=== PATIENT | male | born 1955 | race Hispanic/Latino ===

== ENCOUNTER 2019-01-02 19:44 | Inpatient (IN) | payer MEDICARE, OTHER ==
[~2019-01-02 19:44] MED LIST: Iopamidol 370 76% 100 ML VIAL ONE
[2019-01-02] MEDS ORDERED: Aspirin Chewable 81 MG TAB ONE (19:57)
[2019-01-02] MEDS ORDERED: Nitroglycerin 0.4 MG TAB 1 EACH ONE (19:57)
[2019-01-02 20:05] LABS: #Eosinphils 0.3 thou/uL (0.0-0.7); #Lymphocytes 2.8 thou/uL (1.20-3.40); #Monocytes 0.8 thou/uL (0.11-0.59); #Neutrophils 6.3 thou/uL (1.40-6.50); %Basophils 0.3 % (0.0-1.0); %Eosinophils 3.2 % (0.0-10.0); %Lymphocytes 27.3 % (21.0-51.0); %Neutrophils 61.3 % (42.0-75.0); Hemoglobin 12.4 g/dL (14.0-18.0); Mean Corpuscular HGB CONC 34.2 g/dL (32.0-36.0); Mean Corpuscular Hemoglobin 30.4 pg (27.0-31.0); Mean Corpuscular Volume 88.9 fL (78.0-98.0); Mean Platelet Volume 8.2 fL (7.4-10.4); Platelet Count 302 thou/uL (130-400); RBC Distribution Width 12.1 % (11.5-14.5); Red Blood Cell (RBC) Count 4.08 mill/uL (4.70-6.10); White Blood Cell (WBC) Count 10.2 thou/uL (4.8-10.8)
[2019-01-02] MEDS ORDERED: Morphine 4 MG/ML VIAL ONE (20:13)
[2019-01-02] MEDS ORDERED: Nitroglycerin 2% Ointment 1 INCH/1 GM Packet ONE (20:13)
[2019-01-02 20:27] LABS: ALT (SGPT) 32 U/L (8-55); AST (SGOT) 24 U/L (5-34); Albumin 4.3 g/dL (3.4-4.8); Alkaline Phosphatase 96 U/L (40-150); Anion Gap 15 mmol/L (10-20); BUN (Urea Nitrogen) 18 mg/dL (8.4-25.7); Bilirubin, Total 0.3 mg/dL (0.2-1.2); Calc. Creatinine Clearance 0 mL/min (70-130); Calcium 9.1 mg/dL (7.8-10.44); Carbon Dioxide 23 mmol/L (23-31); Chloride 106 mmol/L (98-107); Estimated GFR-MDRD 71; Glucose 131 mg/dL (80-115); Lipase 42 U/L (8-78); Magnesium 1.7 mg/dL (1.6-2.6); Potassium 4.2 mmol/L (3.5-5.1); Protein, Total 7.3 g/dL (5.8-8.1); Sodium 140 mmol/L (136-145)
--- NOTE | 2019-01-02 20:27 | RAD ---
CHEST ONE VIEW: COMPARISON: 09/28/2014 FINDINGS: Normal cardiac silhouette. Pulmonary vessels and hilum are normal. Costophrenic angles are clear. Patchy interstitial opacities may be due to edema or infiltrate. There is a stable nodule projecting over the right lung base, measuring 1.2 cm. No pneumothorax or osseous abnormalities. IMPRESSION: 1. Increased interstitial prominence, which may be due to edema or infiltrate. 2. Stable nodule in the right lung. POS: PPP
[2019-01-02 21:23] LABS: Bacteria/HPF None Seen HPF (None Seen); Bilirubin Negative (Negative); Blood, Urine 1+ (Negative); Clarity Clear (Clear); Glucose, Urine (Dipstick) Normal (Negative); Leukocyte Negative Leu/uL (Negative); Nitrite Negative (Negative); Protein, Urine (Dipstick) 50 mg/dL (Neg-Trace); Squamous Epithelial None Seen HPF (0-3); WBC/HPF 0-3 HPF (0-3)
--- NOTE | 2019-01-02 21:25 | CT ---
CT ANGIOGRAM THORAX WITH IV CONTRAST AND 3-D RECONSTRUCTIONS CLINICAL INDICATION: Chest pain and shortness of breath for one week. COMPARISON: None FINDINGS: Pulmonary arteries: No filling defects are seen in the pulmonary arteries to suggest a pulmonary embo giuseppe. Aorta: The aorta is normal in caliber without evidence of an aortic dissection. Lungs: There are multiple scattered nodular densities seen at the periphery of the lungs bilaterally greater in the lower lobes and right middle lobe. Additional hazy nodular densities are also seen centrally within the lower lobes. Findings could be related to infectious process, and atypical infec tious process is a possibility. There is mild prominence of interstitial densities at each lung base. No consolidation or pleural fluid is seen. There is a large calcified granuloma in the right upper lobe. Mediastinum: There is no evidence of lymphadenopathy. Thyroid gland: Normal appearance where visualized. Osseous structures: Multilevel degenerative changes are seen. No suspicious lytic or sclerotic osseou s lesions are seen. There is a hemangioma seen in the left aspect of the T12 vertebral body. Chest wall: No abnormality visualized. Upper abdomen: Postcholecystectomy changes are seen. There are a few subcentimeter too small to characterize hypodense lesions in the midportion and super ior pole left kidney. There is colonic diverticulosis at the level of the splenic flexure. IMPRESSION: 1. Multiple predominantly subpleural nodular densities seen throughout the lungs bilaterally greater in the lower lobes. Findings could be related to an infectious process as some of these nodules have a slight groundglass density but well-defined margins. However, follow-up is recommended to ensu re resolution. Atypical infectious process is a possibility. 2. Nonspecific mild interstitial thickening in each lower lobe. 3. No CT evidence of a pulmonary embolus.
[2019-01-02] MEDS ORDERED: Ondansetron ODT 4 MG TAB PO PRN (22:01)
[2019-01-02] MEDS ORDERED: Ondansetron PF 4 MG/2 ML Vial IVP PRN (22:01)
[2019-01-02] MEDS ORDERED: Acetaminophen 650 MG Suppository PR PRN (22:01)
[2019-01-02] MEDS ORDERED: Dextrose 5% in Water 1,000 ML IV PRN (22:40)
[2019-01-02] MEDS ORDERED: Dextrose 50% Abboject 50 ML SYRINGE SLOW IVP PRN (22:40)
[2019-01-02] MEDS: Nitroglycerin 0.4 MG TAB (25 Tab Bottle) ONE ×2 (22:54→23:02)
[2019-01-02] MEDS: Acetaminophen 325 MG TAB PO PRN (22:57)
[2019-01-02 23:16] LABS: Troponin I 0.012 ng/mL (< 0.028)
[2019-01-02 23:23] VITALS: BMI 33.6
--- NOTE | 2019-01-03 00:07 | HP ---
PRIMARY CARE DOCTOR: The [facility]. CODE STATUS: Full code. TIME OF EVALUATION: 10:00 p.m. HISTORY OF PRESENT ILLNESS: This is a 63-year-old male patient with past medical history of hypertension, hyperlipidemia, diabetes. The patient came to the hospital after having moderate gradually worsening shortness of breath. The symptoms have been present for the past week, started insidiously and has been gradually getting worse to the point that he cannot function on a daily basis to do his activities of daily living. The patient also has paroxysmal nocturnal dyspnea and that has become so frequent that is happening every night. No clear triggers. No alleviating factors for these symptoms. No fever. He does have some cough with clear sputum. REVIEW OF SYSTEMS: All systems were reviewed and negative except for the findings mentioned above. An extra finding in the review of system was that he reports some abdominal pain and abdominal distention. No constipation, no diarrhea. PAST MEDICAL HISTORY: As mentioned in the HPI. PAST SURGICAL HISTORY: Kidney stone removal, right knee surgery, left collarbone surgery, and cholecystectomy. PSYCHIATRIC HISTORY: The patient has anxiety and depression. SOCIAL HISTORY: No drug use. He smokes cigarettes occasionally. Drinks socially. FAMILY HISTORY: The patient has a history of cardiac disease in both mom and father's side. KNOWN ALLERGIES: No known drug allergies. REPORTED MEDICATIONS: 1. Fluoxetine. 2. Aspirin. 3. Doxazosin. 4. Metformin. 5. Simvastatin. 6. Atenolol. 7. Glipizide. 8. Lactobacillus acidophilus. 9. Cyanocobalamin. 10. NovoLog FlexPen. PHYSICAL EXAMINATION: VITAL SIGNS: On presentation, the patient has blood pressure 201/102 with heart rate 105, respiratory rate was 20, temperature 99, pain was 9/10, oxygen saturation was 97% on room air. GENERAL APPEARANCE: The patient is alert, oriented, not in acute distress. HEENT: Eyes; normal conjunctivae. Moist oral mucosa. Anicteric. No JVD. RESPIRATORY: Bilateral air entry. The patient has bilateral base rales. Symmetric expansion. CARDIOVASCULAR: Normal rate, regular rhythm. No murmurs. No gallop. No edema. ABDOMEN: Soft, distended. Normal bowel sounds. MUSCULOSKELETAL: Baseline range of motion and strength. SKIN: Warm, intact. No pallor. No rash. No redness. Capillary refill seems to be intact. NEUROLOGIC: No evidence of any new focal weakness. Cranial nerves seem to be intact. PSYCH: The patient is in good mood. No anxiety. Optimal judgment. DIAGNOSTIC FINDINGS: EKG was reviewed. The patient has sinus tachycardia at the rate of 104, SC 130, QRS 96, QT corrected 478. Chest CTA was done. The patient has multiple predominantly superior nodular densities seen throughout the lungs bilaterally greater in the lower lobes; finding could be related to infectious process as some of these nodules have a slight ground-glass density but well-defined margins. However, followup is recommended to ensure resolution. Atypical infectious process is a possibility. Nonspecific mild interstitial thickening in his lower lobe. No CTA evidence of pulmonary embolism. Chest x-ray was done. Increased interstitial prominence which may be due to edema or infiltrate. Stable nodule in the right lung. LABORATORY DATA: Labs were reviewed. The patient has a white count of 10.2, hemoglobin 12.4, MCV 88.9, platelet count 302. D-dimer 1.34. Sodium 140, potassium 4.2, chloride 106, carbon dioxide 23, anion gap 15, BUN 18, creatinine 1.0, GFR 71, glucose 131, calcium 9.1, magnesium 1.7, total bilirubin 0.3. LFTs were negative. Beta-natriuretic peptide 390. Urine was done and was negative. ASSESSMENT AND PLAN: The patient will be placed in the hospital with following medical problems: 1. Atypical pneumonitis as seen on the CAT scan. The patient has been complaining that may be infectious in nature. We are going to start antibiotics as of now, and then we will follow the clinical progress. The nodularity, it seems, has some ground glass opacity on the CAT scan that might be related to infection. However, if the symptoms do not improve with antibiotics, malignancy should be another consideration. 2. Possible underlying nondiagnosed congestive heart failure. The patient has beta-natriuretic peptide of 390. We will do an echo in the morning to assess for heart structure and function, and we will treat accordingly. 3. Mild normocytic anemia of unclear etiology. This seems to be stable. We will monitor and treat accordingly. 4. High D-dimer. There is no evidence of any venous thromboembolism. CT angio was negative for pulmonary embolism. 5. Uncontrolled diabetes with blood sugar of 131. We will reconcile home medications and we will also place him on sliding scale for optimal control. 6. Hypertensive urgency. The patient presented with blood pressure of 201/102 and this blood pressure has improved after the patient arrival. We will reconcile home medications once updated and monitor. Might need IV p.r.n. medications for optimal control. 7. Hyperlipidemia. Low-cholesterol diet is advised. 8. Deep venous thrombosis prophylaxis. Job ID: [id number]
[2019-01-03] MEDS: Azithromycin 500 MG in Sodium Chloride 0.9% 250 ML 250 ML IVPB SCH ×2 (00:47→23:39)
[2019-01-03] MEDS: cefTRIAXone\\ROCEPHIN 1 GM in Sodium Chloride 0.9% 100 ML IVPB SCH ×2 (00:48→23:39)
[2019-01-03 01:44] LABS: #Basophils 0.1 thou/uL (0.0-0.2); #Eosinphils 0.3 thou/uL (0.0-0.7); #Lymphocytes 2.8 thou/uL (1.20-3.40); #Monocytes 0.9 thou/uL (0.11-0.59); #Neutrophils 5.8 thou/uL (1.40-6.50); %Basophils 0.6 % (0.0-1.0); %Eosinophils 3.5 % (0.0-10.0); %Monocytes 9.2 % (0.0-10.0); %Neutrophils 58.7 % (42.0-75.0); Hemoglobin 10.6 g/dL (14.0-18.0); Mean Corpuscular HGB CONC 33.7 g/dL (32.0-36.0); Mean Corpuscular Hemoglobin 30.4 pg (27.0-31.0); Mean Corpuscular Volume 90.1 fL (78.0-98.0); Platelet Count 264 thou/uL (130-400); RBC Distribution Width 12.4 % (11.5-14.5); Red Blood Cell (RBC) Count 3.47 mill/uL (4.70-6.10); White Blood Cell (WBC) Count 9.8 thou/uL (4.8-10.8)
[2019-01-03 02:12] LABS: Anion Gap 12 mmol/L (10-20); BUN (Urea Nitrogen) 16 mg/dL (8.4-25.7); Calc. Creatinine Clearance 111 mL/min (70-130); Calcium 8.6 mg/dL (7.8-10.44); Carbon Dioxide 21 mmol/L (23-31); Chloride 110 mmol/L (98-107); Estimated GFR-MDRD 89; Glucose 131 mg/dL (80-115); Potassium 3.8 mmol/L (3.5-5.1); Sodium 139 mmol/L (136-145)
[2019-01-03 02:18] LABS: Troponin I Less than 0.010 ng/mL (< 0.028)
[2019-01-03] MEDS ORDERED: Furosemide 40 MG/4 ML VIAL SLOW IVP SCH (06:00)
[2019-01-03] MEDS: Enoxaparin Sodium 40 MG/0.4 ML SYRINGE SC SCH (09:14)
[2019-01-03] MEDS: HumaLOG 300 UNITS/3 ML VIAL SC PRN (11:51)
[2019-01-03] MEDS: Nitroglycerin 0.4 MG TAB (25 Tab Bottle) ONE ×2 (20:41→20:58)
[2019-01-03] MEDS ORDERED: Morphine 4 MG/ML VIAL SLOW IVP SCH (21:00)
[2019-01-03] MEDS: glipiZIDE 10 MG TAB PO SCH (21:08)
[2019-01-03] MEDS: metFORMIN 500 MG TAB PO SCH (21:08)
[2019-01-03] MEDS: Doxazosin 2 MG TAB PO SCH (21:09)
[2019-01-03] MEDS: Atorvastatin Calcium 10 MG TAB PO SCH (21:09)
[2019-01-03] MEDS: Acetaminophen 325 MG TAB PO PRN (21:11)
--- NOTE | 2019-01-03 22:56 | PDOC.HOSPP ---
- Subjective Subjective: Says he is slightly better. Still has some mild SOB. Reports he has abdominal distention. Has been present for several days and is contemporaneous with the SOB. Has had the abdominal distention before. Comes and goes. Couple times in the past. Follows [facility] the [facility]. He has had this addressed. Says he had a scan that only showed fatty liver. He has been having normal BM's. He does not have hepatitis that he is aware of. He does report [facility], [facility]. He has tatoos that his friends did. Denies peripheral edema. He is aware of the findings on his CT chest. Has had the nodules discussed with him at the [facility]. Was told it was not likely malignant. - Objective Vital Signs & Weight: Vital Signs (12 hours) Temp Pulse Resp BP Pulse Ox 01/03/19 15:00 98.1 F 84 18 160/81 H 01/03/19 11:00 97.9 F 78 18 96 Weight Weight 202 lb I&O: 01/02/19 01/03/19 01/04/19 06:59 06:59 06:59 Intake Total 1670 Output Total 900 Balance 770 Result Diagrams: 01/03/19 01:39 01/03/19 01:39 Additional Labs: Accuchecks 01/03/19 01/03/19 01/03/19 20:40 16:46 11:07 POC Glucose 246 H 148 H 219 H 01/03/19 01/03/19 05:28 01:55 POC Glucose 160 H 130 H ROS - Medication Medications: Active Medications Generic Name Dose Route Start Last Admin Trade Name Gordonq PRN Reason Stop Dose Admin Acetaminophen 650 mg 01/02/19 22:01 01/03/19 21:11 Tylenol PO 650 mg Q4H PRN Administration Headache/Fever/Mild Pain (1-3) Atorvastatin Calcium 10 mg 01/03/19 21:00 01/03/19 21:09 Lipitor PO 10 mg HS CARLOS Administration Doxazosin Mesylate 4 mg 01/03/19 21:00 01/03/19 21:09 Cardura PO 4 mg HS CARLOS Administration Enoxaparin Sodium 40 mg 01/03/19 09:00 01/03/19 09:14 Lovenox SC 40 mg 0900 CRALOS Administration Glipizide 10 mg 01/03/19 21:00 01/03/19 21:08 Glucotrol PO 10 mg BID CARLOS Administration Azithromycin 500 mg/ Sodium 250 mls @ 250 mls/hr 01/02/19 23:00 01/03/19 00: 47 Chloride IVPB 250 mls Q24HR CARLOS Administration Ceftriaxone Sodium 1 gm/ 100 mls @ 200 mls/hr 01/02/19 23:59 01/03/19 00:48 Sodium Chloride IVPB 100 mls Q24HR CARLOS Administration Insulin Human Lispro 0 units 01/02/19 22:40 01/03/19 11:51 Humalog SC 3 units .MILD SLIDING SCALE PRN Administration Mild Correctional Scale Metformin HCl 1,000 mg 01/03/19 21:00 01/03/19 21:08 Glucophage PO 1,000 mg BID CARLOS Administration Morphine Sulfate 4 mg 01/03/19 21:00 01/03/19 21:09 Morphine SLOW IVP 01/03/19 23:00 4 mg NOW CARLOS Administration Sodium Chloride 10 ml 01/03/19 09:00 01/03/19 21:11 Flush - Normal Saline IVF 10 ml Q12HR CARLOS Administration - Exam NAD, awake alert Neck: supple Heart: RRR, no murmur, no gallops, no rubs, normal peripheral pulses Respiratory: CTAB, no wheezes, no rales, no ronchi, normal chest expansion, no tachypnea, normal percussion Gastrointestinal: soft, non-tender, normal bowel sounds, no palpable masses, distended Skin: normal turgor Neurological: CN's grossly intact, normal sensation to touch, no weakness, no focal deficits, no new deficit Musculoskeletal: normal tone Psychiatric: normal affect, normal behavior, A&O x 3 Hosp A/P (1) Dyspnea Code(s): R06.00 - DYSPNEA, UNSPECIFIED Status: Acute (2) Abnormal CT of the chest Code(s): R93.89 - ABNORMAL FINDINGS ON DX IMAGING OF OTH BODY STRUCTURES Status: Acute (3) Abdominal distention Code(s): R14.0 - ABDOMINAL DISTENSION (GASEOUS) Status: Acute (4) Diabetes mellitus Code(s): E11.9 - TYPE 2 DIABETES MELLITUS WITHOUT COMPLICATIONS Status: Acute (5) HLD (hyperlipidemia) Code(s): E78.5 - HYPERLIPIDEMIA, UNSPECIFIED Status: Acute (6) HTN (hypertension) Code(s): I10 - ESSENTIAL (PRIMARY) HYPERTENSION Status: Acute - Plan Echo is pending. Will review the records and see if there is additional imaging of the abdomen indicated. Has some distention with normal bowel sounds and bowel habits. May be stool or possibly ascites, but less likely. May be related to CHF given the intermittent nature. Unclear if he has lung infection. Sounds like his findings are chronic in nature. Continue abx for now.
[2019-01-04] MEDS: Furosemide 40 MG/4 ML VIAL SLOW IVP SCH ×2 (06:19→15:22)
[2019-01-04] MEDS: FLUoxetine HCl 20 MG CAP PO SCH (08:49)
[2019-01-04] MEDS: glipiZIDE 10 MG TAB PO SCH ×2 (08:49→21:22)
[2019-01-04] MEDS: Enoxaparin Sodium 40 MG/0.4 ML SYRINGE SC SCH (08:49)
[2019-01-04] MEDS: Atenolol 25 MG TAB PO SCH (08:49)
[2019-01-04] MEDS: Aspirin 81 mg Enteric Coated Tablet PO SCH (08:49)
[2019-01-04] MEDS: metFORMIN 500 MG TAB PO SCH ×2 (08:49→21:22)
[2019-01-04] MEDS: Acetaminophen 325 MG TAB PO PRN ×2 (08:50→15:22)
--- NOTE | 2019-01-04 10:28 | PDOC.HOSPP ---
- Subjective Subjective: Abdomen is more distended today. More uncomfortable. No BM yesterday. - Objective Vital Signs & Weight: Vital Signs (12 hours) Temp Pulse Resp BP Pulse Ox 01/04/19 07:50 98.7 F 90 18 166/88 H 94 L 01/04/19 04:00 98 F 93 22 H 141/78 H 93 L 01/04/19 03:00 98 F 93 22 H 141/78 H 93 L 01/03/19 23:00 98.7 F 92 20 142/79 H 95 Weight Weight 203 lb I&O: 01/03/19 01/04/19 01/05/19 06:59 06:59 06:59 Intake Total 1670 Output Total 900 Balance 770 Result Diagrams: 01/03/19 01:39 01/03/19 01:39 Additional Labs: Accuchecks 01/04/19 01/03/19 01/03/19 05:34 20:40 16:46 POC Glucose 107 246 H 148 H 01/03/19 11:07 POC Glucose 219 H Hospitalist ROS - Medication Medications: Active Medications Generic Name Dose Route Start Last Admin Trade Name Freq PRN Reason Stop Dose Admin Acetaminophen 650 mg 01/02/19 22:01 01/04/19 08:50 Tylenol PO 650 mg Q4H PRN Administration Headache/Fever/Mild Pain (1-3) Aspirin 81 mg 01/04/19 09:00 01/04/19 08:49 Ecotrin PO 81 mg DAILY CARLOS Administration Atenolol 25 mg 01/04/19 09:00 01/04/19 08:49 Tenormin PO 25 mg DAILY CARLOS Administration Atorvastatin Calcium 10 mg 01/03/19 21:00 01/03/19 21:09 Lipitor PO 10 mg HS CARLOS Administration Doxazosin Mesylate 4 mg 01/03/19 21:00 01/03/19 21:09 Cardura PO 4 mg HS CARLOS Administration Enoxaparin Sodium 40 mg 01/03/19 09:00 01/04/19 08:49 Lovenox SC 40 mg 0900 CARLOS Administration Fluoxetine HCl 20 mg 01/04/19 09:00 01/04/19 08:49 Prozac PO 20 mg DAILY CARLOS Administration Furosemide 40 mg 01/04/19 06:00 01/04/19 06:19 Lasix SLOW IVP 40 mg 0600,1400 CARLOS Administration Glipizide 10 mg 01/03/19 21:00 01/04/19 08:49 Glucotrol PO 10 mg BID CARLOS Administration Azithromycin 500 mg/ Sodium 250 mls @ 250 mls/hr 01/02/19 23:00 01/03/19 23: 39 Chloride IVPB 250 mls Q24HR CARLOS Administration Ceftriaxone Sodium 1 gm/ 100 mls @ 200 mls/hr 01/02/19 23:59 01/03/19 23:39 Sodium Chloride IVPB 100 mls Q24HR CARLOS Administration Insulin Human Lispro 0 units 01/02/19 22:40 01/03/19 11:51 Humalog SC 3 units .MILD SLIDING SCALE PRN Administration Mild Correctional Scale Metformin HCl 1,000 mg 01/03/19 21:00 01/04/19 08:49 Glucophage PO 1,000 mg BID CARLOS Administration Sodium Chloride 10 ml 01/03/19 09:00 01/04/19 08:49 Flush - Normal Saline IVF 10 ml Q12HR CARLOS Administration - Exam General Appearance: NAD, awake alert General - other findings: A little uncomfortable. Neck: supple, symmetric, no JVD, no thyromegaly, no lymphadenopathy, no carotid bruit Heart: RRR, no murmur, no gallops, no rubs, normal peripheral pulses Respiratory: CTAB, no wheezes, no rales, no ronchi, normal chest expansion, no tachypnea, normal percussion Gastrointestinal: no guarding, distended, diminished bowl sounds Gastrointestinal - other findings: mildly diffusely tender. Musculoskeletal: normal tone, normal strength, no muscle wasting Psychiatric: normal affect, normal behavior, A&O x 3 Hosp A/P (1) Dyspnea Code(s): R06.00 - DYSPNEA, UNSPECIFIED Status: Acute (2) Abnormal CT of the chest Code(s): R93.89 - ABNORMAL FINDINGS ON DX IMAGING OF OTH BODY STRUCTURES Status: Acute (3) Abdominal distention Code(s): R14.0 - ABDOMINAL DISTENSION (GASEOUS) Status: Acute (4) Diabetes mellitus Code(s): E11.9 - TYPE 2 DIABETES MELLITUS WITHOUT COMPLICATIONS Status: Acute (5) HLD (hyperlipidemia) Code(s): E78.5 - HYPERLIPIDEMIA, UNSPECIFIED Status: Acute (6) HTN (hypertension) Code(s): I10 - ESSENTIAL (PRIMARY) HYPERTENSION Status: Acute (7) Cardiomyopathy Code(s): I42.9 - CARDIOMYOPATHY, UNSPECIFIED Status: Acute - Plan Has reduced EF on ECHO. 40-45%. New finding. Unclear etiology. Initiate diuretics in light of the abd distention. Cardiology consult. May need ischemia workup. CT abdomen for increased distention. Oral contrast will help clear the gut as well. CT chest did not reveal evidence of ascites. Does not appear to be ascites on exam. Hx of fatty liver. Continue abx for abnormal chest CT, but appears chronic. Dyspnea is likely due to either CHF, abdominal distention or both.
--- NOTE | 2019-01-04 12:03 | RAD ---
EXAM: XR Abdomen 1 View/KUB PROVIDED CLINICAL HISTORY: Abdominal distention COMPARISON: None FINDINGS: Surgical clips overlie the right upper quadrant. Phleboliths overlie the right hemipelvis. No suspici ous calcifications are seen. The bowel gas pattern is nonspecific. Small portion of the right lateral abdomen is excluded from view. Mild degenerative changes are seen in the spine. There is pseu doarticulation of the right lateral mass of L5 with S1. IMPRESSION: Nonspecific bowel gas pattern.
--- NOTE | 2019-01-04 13:02 | PQF ---
STEVE PATEL, LATOYA Bardales MD [id number] CLINICAL DOCUMENTATION IMPROVEMENT CLARIFICATION FORM: ICD-10 Updated PLEASE DO AN ADDENDUM TO THE PROGRESS NOTE WITH ANY DOCUMENTATION UPDATES OR ADDITIONS AND CARRY THROUGH TO DC SUMMARY. THANK YOU. DATE: 01/04/2019,01/05/19 ATTN:DR. Husam GARCIA Please exercise your independent, professional judgment in responding to the clarification form. Clinical indicators are provided on the bottom of this form for your review. Please check appropriate box(s): HEART FAILURE: A. TYPE: [ x] Systolic / HFrEF [ ] Diastolic / HFpEF [ ] Combined Systolic / Diastolic B. ACUITY [ x ] Acute [ ] Acute on Chronic [ ] Chronic [ ] Other diagnosis [ ] Unable to determine In addition, please specify: Present on Admission (POA): [ x ] Yes [ ] No [ ] Unable to determine For continuity of documentation, please document condition throughout progress notes and discharge summary. Thank You. CLINICAL INDICATORS - SIGNS / SYMPTOMS / LABS 01/02 BNP 390.0 01/02 CXR IMPRESSION: INCREASED INTERSTITIAL PROMINENCE,WHICH MAY BE DUE TO EDEMA OR INFILTRATE 01/02 H&P (TRACY) A/P: 2). POSSIBLE UNDERLYING NONDIAGNOSED CONGESTIVE HEART FAILURE. THE PATIENT HAS BNP OF 390. WE WILL DO AN ECHO IN THE MORNING TO ASSESS FOR HEART STRUCTURE AND FUNCTION AND TREAT ACCORDINGLY. 01/03 ECHO: EF 40-45%, LEFT VENTRICULAR FUNCTION IS MILDLY DEPRESSED, LEFT ATRIUM MILDLY DILATED, MODERATED MITRAL REGURGITATION PRESENT,MILD TRICUSPID REGURGITATION OVERALL LEFT VENTRICULAR FUNCTION IS MILDLY DEPRESSED 01/03 PN (RADHA) STILL HAS SOME MILD SOB. A/P: 1) DYSPNEA, HAS DISTENTION W NORMAL BOWEL SOUNDS AND BOWEL HABITS. MAY BE STOOL OR POSSIBLY ASCITES, BUT LESS LIKELY. MAY BE RELATED TO CHF GIVEN THE INTERMITTENT NATURE. 01/04 PN (RADHA) A/P : 1). DYSPNEA, 7) CARDIOMYOPATHY. HAS REDUCED EF. NEW FINDING. INITIATE DIURETICS IN LIGHT OF THE ABD DISTENTION. CARDIOLOGY CONSULT. DYSPNEA IS LIKELY DUE TO EITHER CHF , ABD DISTENTION OR BOTH. RISK: DX CARDIOMYOPATHY, (RADHA 01/04) HX TOBACCO ABUSE, HTN , DM (TRACY 01/02) TREATMENTS CARDIOLOGY CONSULT ( 01/04) IV LASIX (01/04) ECHO (01/03) THANK YOU! MONET (This form is maintained as a part of the permanent medical record) 2014 [employer] All Rights Reserved [email or web address] [phone] MTDD
--- NOTE | 2019-01-04 14:44 | CT ---
EXAM: Abdomen and pelvic CT scan without contrast: HISTORY: Abdominal distention and pain, nausea and diarrhea COMPARISON: CT angiogram chest FINDINGS: Trace pericardial fluid or thickening No acute process in the visualized lower lung zones. Very small hiatal hernia. Liver: Unremarkable. Gallbladder:Status post cholecystectomy. Pancreas:Unremarkable Spleen:Unremarkable. Adrenal glands:Unremarkable. Kidneys:No renal calculus or acute obstruction.No solid or cystic mass. No evidence for bowel obstruction. No CT evidence for acute appendicitis. Small umbilical hernia and bilateral inguinal fat-containing hernias Minimal fat stranding and gas in the right lower anterior abdominal wall subcutaneous fat. Fairly extensive colon diverticulosis without acute diverticulitis. The urinary bladder is unremarkable. No abscess, adenopathy, or abnormal fluid collection within the abdomen or pelvis. IMPRESSION: No significant acute process in the abdomen or pelvis. Mesenteric fat-containing umbilical and bilate ral inguinal hernias. Colonic diverticulosis without acute diverticulitis. Small hiatal hernia.
[2019-01-04] MEDS ORDERED: Potassium Chloride 20 MEQ TAB PO SCH (16:00)
[2019-01-04] MEDS ORDERED: Communication Order-Pharmacy FS SCH (16:00)
[2019-01-04] MEDS: Doxazosin 2 MG TAB PO SCH (21:22)
[2019-01-04] MEDS: Atorvastatin Calcium 10 MG TAB PO SCH (21:22)
[2019-01-04] MEDS ORDERED: Morphine 4 MG/ML VIAL SLOW IVP SCH (22:45)
[2019-01-04] MEDS: Azithromycin 500 MG in Sodium Chloride 0.9% 250 ML 250 ML IVPB SCH (23:33)
[2019-01-04] MEDS: cefTRIAXone\\ROCEPHIN 1 GM in Sodium Chloride 0.9% 100 ML IVPB SCH (23:33)
[2019-01-05 05:31] LABS: Anion Gap 13 mmol/L (10-20); BUN (Urea Nitrogen) 16 mg/dL (8.4-25.7); Calc. Creatinine Clearance 114 mL/min (70-130); Calcium 9.4 mg/dL (7.8-10.44); Carbon Dioxide 26 mmol/L (23-31); Cardiac Risk 4.4 (Less than 4.5); Chloride 106 mmol/L (98-107); Cholesterol 145 mg/dl (< 200 Desired); Estimated GFR-MDRD Greater than 90; Glucose 120 mg/dL (80-115); HDL Cholesterol 33 mg/dL (>60 Neg Risk); LDL Cholesterol, Calculated 81 mg/dL; Potassium 3.9 mmol/L (3.5-5.1); Sodium 141 mmol/L (136-145); Triglycerides 154 mg/dL (Less than 150)
[2019-01-05] MEDS: Atenolol 25 MG TAB PO SCH (06:12)
[2019-01-05 07:28] LABS: #Eosinphils 0.3 thou/uL (0.0-0.7); #Lymphocytes 1.8 thou/uL (1.20-3.40); #Monocytes 0.8 thou/uL (0.11-0.59); #Neutrophils 7.2 thou/uL (1.40-6.50); %Basophils 0.3 % (0.0-1.0); %Eosinophils 2.9 % (0.0-10.0); %Lymphocytes 17.8 % (21.0-51.0); %Monocytes 8.2 % (0.0-10.0); %Neutrophils 70.8 % (42.0-75.0); Hemoglobin 11.9 g/dL (14.0-18.0); Mean Corpuscular HGB CONC 33.6 g/dL (32.0-36.0); Mean Corpuscular Hemoglobin 29.9 pg (27.0-31.0); Mean Platelet Volume 7.6 fL (7.4-10.4); Platelet Count 296 thou/uL (130-400); RBC Distribution Width 12.3 % (11.5-14.5); Red Blood Cell (RBC) Count 3.99 mill/uL (4.70-6.10); White Blood Cell (WBC) Count 10.2 thou/uL (4.8-10.8)
[2019-01-05] MEDS ORDERED: Lidocaine 1% (PF) 30 ML VIAL ONE (07:53)
--- NOTE | 2019-01-05 08:14 | CON ---
DATE OF CONSULTATION: 01/04/2019 REASON FOR CONSULTATION: Shortness of breath, depressed ejection fraction on echocardiogram. HISTORY OF PRESENT ILLNESS: Mr. Cassidy is a very pleasant 63-year-old gentleman, who has a long history of diabetes over 10 years. He has been to the hospital with progressive difficulty breathing. The patient states he has got to the point where even to minimal exertion he is short of breath. He has received intravenous diuretics. In the hospital, he seems to be improving to some degree. He is currently short of breath with minimal activity around the room however. He also has occasional chest pain on pressure. The pressure in his chest seems to relieve he says by taking his hand and pressing on the left upper portion of his chest. PAST MEDICAL HISTORY: 1. Diabetes, longstanding over 10 years. 2. History of hypertension. 3. Hypercholesterolemia. PAST SURGICAL HISTORY: 1. Previous kidney stone removal. 2. Right knee surgery. 3. Cholecystectomy. PSYCHIATRIC: He reports some anxiety and depression. SOCIAL HISTORY: No drugs. Smokes about 4 cigarettes per day. He quit for a while, but went back after he said he lost his son this last summer. FAMILY HISTORY: Mother and father, both coronary artery disease. ALLERGIES: NONE KNOWN. MEDICATION: 1. Fluoxetine. 2. Aspirin. 3. Doxazosin. 4. Metformin. 5. Simvastatin. 6. Atenolol. 7. Glipizide. 8. Insulin. PHYSICAL EXAMINATION: GENERAL: This is a pleasant 63-year-old man, in no distress. VITAL SIGNS: Blood pressure 165/86, pulse 73 and regular. HEENT: Eyes, sclerae are nonicteric. Mucous membranes moist. NECK: Supple. No lymphadenopathy. LUNGS: Clear. No wheezing, rales, or rhonchi. CARDIAC: Normal S1. Normal S2. There is no murmur, rub, or gallop. ABDOMEN: Soft and nontender. EXTREMITIES: No clubbing or cyanosis. No edema. SKIN: Warm and dry. PSYCHIATRIC: Mood and affect normal. NEUROLOGIC: Grossly normal. Good posterior tibial pulses bilaterally. PERTINENT LABORATORY DATA: Glucose 131. BNP 390. No cholesterol level. EKG, sinus tachycardia, no acute changes. Troponin levels were normal. ASSESSMENT: 1. Congestive heart failure, systolic, likely chronic. 2. Long-standing diabetes. 3. Probably some element of chronic obstructive pulmonary disease. 4. High probability of underlying coronary artery disease, long-standing diabetes, smoking, hypertension, and hypercholesterolemia. PLAN: 1. Proceed to cardiac catheterization tomorrow. Discussed risk of stroke, heart attack, iodine allergy, loss of blood supply to leg or kidney, stent thrombosis, stent restenosis. The patient understands and wishes to proceed. 2. We will also add SHANKAR inhibitors. 3. Recheck the lipids, probably will need a stronger statin. 4. Probably we will change from atenolol to carvedilol. Job ID: [id number]
[2019-01-05] MEDS ORDERED: Lisinopril 2.5 MG TAB PO SCH (09:00)
[2019-01-05] MEDS ORDERED: Iopamidol 370 76% 100 ML VIAL ONE (09:12)
[2019-01-05] MEDS ORDERED: Fentanyl 100 MCG/2 ML VIAL ONE (09:50)
[2019-01-05] MEDS ORDERED: Midazolam HCl 2 mg/2 ml Vial ONE (09:50)
[2019-01-05] MEDS ORDERED: Nitroglycerin 0.4 MG TAB (25 Tab Bottle) SL PRN (10:26)
[2019-01-05] MEDS ORDERED: Sodium Chloride 0.9% 200 ML IV PRN (10:26)
[2019-01-05] MEDS ORDERED: Sodium Chloride 0.9% 1,000 ML IV SCH (10:30)
[2019-01-05] MEDS ORDERED: Spironolactone 25 MG TAB PO SCH (10:30)
[2019-01-05] MEDS ORDERED: Lisinopril 5 MG TAB PO SCH (10:45)
[2019-01-05] MEDS: Furosemide 20 MG TAB PO SCH (14:07)
[2019-01-05] MEDS: glipiZIDE 10 MG TAB PO SCH ×2 (14:07→20:47)
[2019-01-05] MEDS: metFORMIN 500 MG TAB PO SCH (14:07)
[2019-01-05] MEDS: Aspirin 81 mg Enteric Coated Tablet PO SCH (14:07)
[2019-01-05] MEDS: FLUoxetine HCl 20 MG CAP PO SCH (14:07)
[2019-01-05] MEDS: Acetaminophen 325 MG TAB PO PRN (16:37)
[2019-01-05] MEDS ORDERED: Carvedilol 6.25 MG TAB PO SCH (17:00)
--- NOTE | 2019-01-05 17:03 | PDOC.HOSPP ---
- Subjective Subjective: Feels much better overall. Did diurese a little with the IV lasix. Had BM's with oral contrast. Tolerated cath well today. - Objective Vital Signs & Weight: Vital Signs (12 hours) Temp Pulse Resp BP BP BP Pulse Ox 01/05/19 16:37 139/85 01/05/19 14:06 78 01/05/19 11:35 97.7 F 65 18 137/70 96 01/05/19 10:45 67 18 161/77 H 96 01/05/19 10:26 97 01/05/19 07:25 98.3 F 80 18 157/94 H 97 01/05/19 06:12 125 H 139/85 Weight Weight 200 lb 8 oz I&O: 01/04/19 01/05/19 01/06/19 06:59 06:59 06:59 Intake Total 1670 940 Output Total 900 878 Balance 770 62 Result Diagrams: 01/05/19 07:21 01/05/19 04:56 Additional Labs: Accuchecks 01/05/19 01/05/19 01/04/19 11:03 05:11 20:11 POC Glucose 158 H 121 H 191 H 01/04/19 17:16 POC Glucose 173 H Hospitalist ROS - Medication Medications: Active Medications Generic Name Dose Route Start Last Admin Trade Name Ximena PRN Reason Stop Dose Admin Acetaminophen 650 mg 01/02/19 22:01 01/05/19 16:37 Tylenol PO 650 mg Q4H PRN Administration Headache/Fever/Mild Pain (1-3) Aspirin 81 mg 01/04/19 09:00 01/05/19 14:07 Ecotrin PO 81 mg DAILY CARLOS Administration Carvedilol 6.25 mg 01/05/19 17:00 01/05/19 16:37 Coreg PO 6.25 mg BID-WM CARLOS Administration Doxazosin Mesylate 4 mg 01/03/19 21:00 01/04/19 21:22 Cardura PO 4 mg HS CARLOS Administration Fluoxetine HCl 20 mg 01/04/19 09:00 01/05/19 14:07 Prozac PO 20 mg DAILY CARLOS Administration Furosemide 20 mg 01/05/19 14:00 01/05/19 14:07 Lasix PO 20 mg 0900,1400 CARLOS Administration Glipizide 10 mg 01/03/19 21:00 01/05/19 14:07 Glucotrol PO 10 mg BID CARLOS Administration Azithromycin 500 mg/ Sodium 250 mls @ 250 mls/hr 01/02/19 23:00 01/04/19 23: 33 Chloride IVPB 250 mls Q24HR CARLOS Administration Ceftriaxone Sodium 1 gm/ 100 mls @ 200 mls/hr 01/02/19 23:59 01/04/19 23:33 Sodium Chloride IVPB 100 mls Q24HR CARLOS Administration Insulin Human Lispro 0 units 01/02/19 22:40 01/03/19 11:51 Humalog SC 3 units .MILD SLIDING SCALE PRN Administration Mild Correctional Scale Metformin HCl 1,000 mg 01/03/19 21:00 01/05/19 14:07 Glucophage PO 1,000 mg BID CARLOS Administration - Exam General Appearance: NAD, awake alert Neck: supple, symmetric, no JVD, no thyromegaly, no lymphadenopathy, no carotid bruit Heart: RRR, no murmur, no gallops, no rubs, normal peripheral pulses Respiratory: CTAB, no wheezes, no rales, no ronchi, normal chest expansion, no tachypnea, normal percussion Gastrointestinal: soft, non-tender, non-distended, normal bowel sounds, no palpable masses, no hepatomegaly, no splenomegaly, no bruit Skin: normal turgor, no lesions, no rashes Musculoskeletal: normal tone, normal strength, no muscle wasting Psychiatric: normal affect, normal behavior, A&O x 3 Hosp A/P (1) Dyspnea Code(s): R06.00 - DYSPNEA, UNSPECIFIED Status: Acute (2) Abnormal CT of the chest Code(s): R93.89 - ABNORMAL FINDINGS ON DX IMAGING OF OTH BODY STRUCTURES Status: Acute Plan: Chronic. Not infectious. (3) Abdominal distention Code(s): R14.0 - ABDOMINAL DISTENSION (GASEOUS) Status: Acute (4) Diabetes mellitus Code(s): E11.9 - TYPE 2 DIABETES MELLITUS WITHOUT COMPLICATIONS Status: Acute (5) HLD (hyperlipidemia) Code(s): E78.5 - HYPERLIPIDEMIA, UNSPECIFIED Status: Acute (6) HTN (hypertension) Code(s): I10 - ESSENTIAL (PRIMARY) HYPERTENSION Status: Acute (7) Cardiomyopathy Code(s): I42.9 - CARDIOMYOPATHY, UNSPECIFIED Status: Acute Plan: Non-ischemic. (8) Acute on chronic diastolic (congestive) heart failure Code(s): I50.33 - ACUTE ON CHRONIC DIASTOLIC (CONGESTIVE) HEART FAILURE Status : Acute - Plan Initial concern for pneumonia appears unlikely at this point. Will DC abx Actually, appears to be related to non-ischemic cardiomyopathy based on cath today with no occlusive disease or significant plaque burden. Lasix, ACEI, Coreg. Limit po fluid intake. Ambulate. Anticipate changing to po meds and DC in am.
[2019-01-05] MEDS: HumaLOG 300 UNITS/3 ML VIAL SC PRN (18:07)
[2019-01-05] MEDS: Doxazosin 2 MG TAB PO SCH (20:47)
[2019-01-05] MEDS ORDERED: Rosuvastatin 20 MG TAB PO SCH (21:00)
[2019-01-05] MEDS ORDERED: Nystatin/Triamcinolone Cream 15 GM TUBE TOP SCH (21:30)
[2019-01-05 22:43] LABS: Hemoglobin 11.8 g/dL (14.0-18.0); Platelet Count 316 thou/uL (130-400)
--- NOTE | 2019-01-05 23:07 | ULT ---
Ultrasound Doppler duplex right groin: DATE: 01/05/2019 Time: 10:20 PM HISTORY: 63 year old male status post arteriogram via catheterization access of right groin. Right groin swell ing and pain.. Rule out pseudoaneurysm. TECHNIQUE: Grayscale, color-flow, and spectral analysis, of the right groin. FINDINGS: No evidence of pseudoaneurysm or hematoma. Pulse Doppler arterial waveform in right common femoral artery. Normal venous waveform in right common femoral vein. IMPRESSION: No pseudoaneurysm, hematoma, or arteriovenous fistula.
[2019-01-05] MEDS: Acetaminophen/Codeine 30-300mg Tablet PO PRN (23:33)
[2019-01-06] MEDS ORDERED: Morphine 2 MG/ML SYRINGE SLOW IVP SCH (01:45)
[2019-01-06 07:23] LABS: #Basophils 0.1 thou/uL (0.0-0.2); #Eosinphils 0.3 thou/uL (0.0-0.7); #Lymphocytes 2.5 thou/uL (1.20-3.40); #Monocytes 1.1 thou/uL (0.11-0.59); #Neutrophils 7.4 thou/uL (1.40-6.50); %Basophils 0.7 % (0.0-1.0); %Eosinophils 2.8 % (0.0-10.0); %Lymphocytes 22.2 % (21.0-51.0); %Monocytes 9.3 % (0.0-10.0); Hemoglobin 12.2 g/dL (14.0-18.0); Mean Corpuscular HGB CONC 33.7 g/dL (32.0-36.0); Mean Corpuscular Hemoglobin 29.8 pg (27.0-31.0); Mean Corpuscular Volume 88.5 fL (78.0-98.0); Mean Platelet Volume 7.6 fL (7.4-10.4); Platelet Count 311 thou/uL (130-400); RBC Distribution Width 12.3 % (11.5-14.5); Red Blood Cell (RBC) Count 4.08 mill/uL (4.70-6.10); White Blood Cell (WBC) Count 11.3 thou/uL (4.8-10.8)
--- NOTE | 2019-01-06 08:03 | ULT ---
RIGHT GROIN DOPPLER IMAGING: VASCULAR ULTRASOUND: INDICATIONS: Pseudoaneurysm. FINDINGS: Sonographic imaging of the right femoral vasculature does not reveal a discrete pseudoaneurysm. Flow is seen within the traversing femoral vein and artery. IMPRESSION: No discrete evidence of pseudoaneurysm. POS: CET
[2019-01-06] MEDS ORDERED: Lisinopril 5 MG TAB PO SCH (09:00)
[2019-01-06] MEDS: Carvedilol 6.25 MG TAB PO SCH ×2 (09:03→16:36)
[2019-01-06] MEDS: Furosemide 20 MG TAB PO SCH ×2 (09:06→13:14)
[2019-01-06] MEDS: Spironolactone 25 MG TAB PO SCH (09:06)
[2019-01-06] MEDS: FLUoxetine HCl 20 MG CAP PO SCH (09:06)
[2019-01-06] MEDS: glipiZIDE 10 MG TAB PO SCH ×2 (09:07→20:45)
[2019-01-06] MEDS: Nystatin/Triamcinolone Cream 30 GM TUBE TOP SCH ×2 (12:42→20:22)
[2019-01-06] MEDS: Acetaminophen/Codeine 30-300mg Tablet PO PRN ×2 (13:13→20:17)
[2019-01-06] MEDS: HumaLOG 300 UNITS/3 ML VIAL SC PRN ×2 (13:15→16:36)
[2019-01-06] MEDS ORDERED: Rosuvastatin 20 MG TAB PO SCH (17:35)
--- NOTE | 2019-01-06 19:18 | PRG ---
DATE OF SERVICE: 01/06/2019 Mr. Cassidy is doing better. His groin is not nearly as sore. The ultrasound of his groin x2 revealed no evidence of any pseudoaneurysm. I would make the following changes: 1. Increase lisinopril to 5 mg twice a day. 2. Take him off the Cardura that can cause orthostatic hypotension. 3. He is on carvedilol 12.5 mg twice a day. 4. I took him off aspirin for now. Does not have any obstructive coronary artery disease. He has minimal plaque in his LAD, may resume that later. 5. He is on Crestor 20 mg a day. 6. Spironolactone 25 mg a day. Should be able to go home tomorrow to see me in a week or two. Job ID: [id number]
[2019-01-06] MEDS: Lisinopril 5 MG TAB PO SCH (20:19)
[2019-01-06] MEDS: metFORMIN 500 MG TAB PO SCH (20:45)
--- NOTE | 2019-01-06 21:20 | PDOC.HOSPP ---
- Subjective Subjective: Had some pain related to the cath site. Has had two US to assess for bleed or pseudoaneurysm. Negative. Feeling better now. Breathing better. Abdominal distention is better. - Objective Vital Signs & Weight: Vital Signs (12 hours) Temp Pulse Resp BP Pulse Ox 01/06/19 16:30 99.6 F 101 H 17 139/87 93 L 01/06/19 13:05 98.7 F 89 18 135/63 92 L Weight Weight 202 lb 4.8 oz I&O: 01/05/19 01/06/19 01/07/19 06:59 06:59 06:59 Intake Total 940 1700 600 Output Total 878 900 500 Balance 62 800 100 Result Diagrams: 01/06/19 07:17 01/05/19 04:56 Additional Labs: Accuchecks 01/06/19 01/06/19 01/06/19 20:29 16:35 11:05 POC Glucose 250 H 204 H 214 H 01/06/19 05:18 POC Glucose 145 H Hospitalist ROS - Medication Medications: Active Medications Generic Name Dose Route Start Last Admin Trade Name Freq PRN Reason Stop Dose Admin Acetaminophen 650 mg 01/02/19 22:01 01/05/19 16:37 Tylenol PO 650 mg Q4H PRN Administration Headache/Fever/Mild Pain (1-3) Acetaminophen/Codeine Phosphate 1 tab 01/05/19 10:26 01/06/19 20:17 Tylenol #3 PO 1 tab Q4H PRN Administration Mild Pain (1-3) Carvedilol 12.5 mg 01/06/19 08:00 01/06/19 16:36 Coreg PO 12.5 mg BID-WM CARLOS Administration Fluoxetine HCl 20 mg 01/04/19 09:00 01/06/19 09:06 Prozac PO 20 mg DAILY CARLOS Administration Furosemide 20 mg 01/05/19 14:00 01/06/19 13:14 Lasix PO 20 mg 0900,1400 CARLOS Administration Glipizide 10 mg 01/03/19 21:00 01/06/19 20:45 Glucotrol PO 10 mg BID CARLOS Administration Insulin Human Lispro 0 units 01/02/19 22:40 01/06/19 16:36 Humalog SC 3 units .MILD SLIDING SCALE PRN Administration Mild Correctional Scale Lisinopril 5 mg 01/06/19 21:00 01/06/19 20:19 Zestril PO 5 mg BID CARLOS Administration Metformin HCl 1,000 mg 01/03/19 21:00 01/06/19 20:45 Glucophage PO 1,000 mg BID CARLOS Administration Nystatin/Triamcinolone Acetonide 0 gm 01/06/19 09:00 01/06/19 20:22 Mycogen Ii Cream TOP 1 applic BID CARLOS Administration Rosuvastatin Calcium 20 mg 01/06/19 17:35 01/06/19 20:19 Crestor PO 20 mg HS CARLOS Administration Sodium Chloride 10 ml 01/06/19 09:00 01/06/19 20:21 Flush - Normal Saline IVF 10 ml Q12HR CARLOS Administration Spironolactone 25 mg 01/06/19 08:00 01/06/19 09:06 Aldactone PO 25 mg QAM-WM CARLOS Administration - Exam General Appearance: NAD, awake alert Neck: supple, symmetric, no JVD, no thyromegaly, no lymphadenopathy, no carotid bruit Heart: RRR, no murmur, no gallops, no rubs, normal peripheral pulses Respiratory: CTAB, no wheezes, no rales, no ronchi, normal chest expansion, no tachypnea, normal percussion Gastrointestinal: soft, non-tender, non-distended, normal bowel sounds, no palpable masses, no hepatomegaly, no splenomegaly, no bruit Skin: normal turgor, no lesions, no rashes Psychiatric: normal affect, normal behavior, A&O x 3 Hosp A/P (1) Dyspnea Code(s): R06.00 - DYSPNEA, UNSPECIFIED Status: Acute (2) Abnormal CT of the chest Code(s): R93.89 - ABNORMAL FINDINGS ON DX IMAGING OF OTH BODY STRUCTURES Status: Acute (3) Abdominal distention Code(s): R14.0 - ABDOMINAL DISTENSION (GASEOUS) Status: Acute (4) Diabetes mellitus Code(s): E11.9 - TYPE 2 DIABETES MELLITUS WITHOUT COMPLICATIONS Status: Acute (5) HLD (hyperlipidemia) Code(s): E78.5 - HYPERLIPIDEMIA, UNSPECIFIED Status: Acute (6) HTN (hypertension) Code(s): I10 - ESSENTIAL (PRIMARY) HYPERTENSION Status: Acute (7) Cardiomyopathy Code(s): I42.9 - CARDIOMYOPATHY, UNSPECIFIED Status: Acute (8) Acute on chronic diastolic (congestive) heart failure Code(s): I50.33 - ACUTE ON CHRONIC DIASTOLIC (CONGESTIVE) HEART FAILURE Status : Acute - Plan Initial concern for pneumonia appears unlikely at this point. Actually, appears to be related to non-ischemic cardiomyopathy based on cath today with no occlusive disease or significant plaque burden. Lasix, ACEI, Coreg. Limit po fluid intake. Ambulate. Continue to monitor the groin site. Appreciate Cardiology input. Increasing ACEI, Coreg, Statin.
[2019-01-07] MEDS: Acetaminophen/Codeine 30-300mg Tablet PO PRN ×3 (00:08→09:14)
[2019-01-07 05:01] LABS: Hemoglobin 11.5 g/dL (14.0-18.0)
[2019-01-07 05:16] LABS: Anion Gap 13 mmol/L (10-20); BUN (Urea Nitrogen) 14 mg/dL (8.4-25.7); Calc. Creatinine Clearance 114 mL/min (70-130); Carbon Dioxide 25 mmol/L (23-31); Chloride 103 mmol/L (98-107); Estimated GFR-MDRD Greater than 90; Glucose 127 mg/dL (80-115); Potassium 3.7 mmol/L (3.5-5.1); Sodium 137 mmol/L (136-145)
[2019-01-07 08:07] VITALS: BP 146/77; TEMP 98.4
--- NOTE | 2019-01-07 08:30 | PRG ---
DATE OF SERVICE: 01/07/2019 SUBJECTIVE: Mr. Cassidy is doing well. His leg feels better. No complaints. He has no chest pain or pressure. OBJECTIVE: VITAL SIGNS: Blood pressure 140/78, pulse in the 80s, it is regular. LUNGS: Clear. CARDIAC: Normal S1 and S2. ABDOMEN: Soft and nontender. EXTREMITIES: No edema. ASSESSMENT: 1. Congestive heart failure, systolic, chronic, improved. 2. Hypertension, improved. PLAN: 1. He is currently on carvedilol 12.5 mg twice a day. 2. Aspirin 81 mg a day. 3. Lisinopril 5 mg twice a day. 4. Crestor 20 mg a day. 5. I have taken him off the doxazosin which has caused orthostatic okay to go home to see us in a couple of weeks. 6. The patient has had 2 ultrasounds to the right groin. There is NO pseudoaneurysm. Job ID: [id number]
[2019-01-07] MEDS: glipiZIDE 10 MG TAB PO SCH (09:06)
[2019-01-07] MEDS: Lisinopril 5 MG TAB PO SCH (09:07)
[2019-01-07] MEDS: metFORMIN 500 MG TAB PO SCH (09:07)
[2019-01-07] MEDS: FLUoxetine HCl 20 MG CAP PO SCH (09:07)
[2019-01-07] MEDS: Furosemide 20 MG TAB PO SCH (09:07)
[2019-01-07] MEDS: Spironolactone 25 MG TAB PO SCH (09:07)
[2019-01-07] MEDS: Carvedilol 6.25 MG TAB PO SCH (09:08)
[2019-01-07] MEDS: Nystatin/Triamcinolone Cream 30 GM TUBE TOP SCH (09:09)
--- NOTE | 2019-01-09 01:29 | DIS ---
DATE OF ADMISSION: 01/02/2019 DATE OF DISCHARGE: 01/07/2019 DISCHARGE DIAGNOSES: 1. Nonischemic cardiomyopathy. 2. Acute on chronic systolic congestive heart failure. 3. Abnormal CT of the chest with chronic findings. 4. Abdominal distention. 5. Diabetes mellitus. 6. Hypertension. 7. Hyperlipidemia. HISTORY OF PRESENT ILLNESS: This patient is a 63-year-old male who presented via the emergency department with worsening shortness of breath over about a week. In the emergency department, the patient had some nodular densities throughout the lungs and some nonspecific interstitial thickening in the lower lobes. The chest x-ray showed some prominence concerning for edema or infiltrate. White count was 10, otherwise labs were largely unremarkable. BNP was slightly elevated at 390. HOSPITAL COURSE: The patient was admitted with concern for possible atypical pneumonia with the findings on his CT scan and the possibility of new onset of previously undiagnosed heart failure. The patient subsequently was admitted where he developed some abdominal distention and discomfort, which appeared to be possibly compromising his breathing as well. An in-depth conversation with the patient, he explained that he was fully aware of the abnormal findings on his CT scan and that these had been present previously and he discussed them with his physicians at the [facility] and was reassured that they were benign findings. He was unsure if he had any workup or any prior diagnosis of hepatitis, but he was fairly confident he had been evaluated and did not have it. He did say that he had prior imaging of his abdomen which only showed some fatty liver. The patient did undergo a repeat CT of the abdomen and pelvis, which did not reveal any significant findings. He did have some increased bowel movements with the oral contrast from the CT, which did relieve some of his abdominal distention. He had an echocardiogram performed which revealed a reduced ejection fraction of 40% to 45%. With that, Cardiology was consulted and the patient was taken for catheterization by Dr. Ledbetter. He had no significant occlusive disease and it was felt that he had a nonischemic cardiomyopathy. The patient subsequently had pain around the cath site at the groin. He had some mild expected hematoma. He had ultrasounds performed subsequent in the series which failed to reveal any significant deep hematoma or pseudoaneurysm. The patient's hemoglobin remained stable. Given his nonischemic cardiomyopathy, he was started on Coreg and SHANKAR inhibitors, which he tolerated well. He was maintained on diuretics shortly after his admission, and with the diuresis, he continued to feel better, and ultimately was felt to be stable for discharge. PHYSICAL EXAMINATION: On the day of discharge, VITAL SIGNS: Temperature is 98.4, pulse 85, respirations 17, O2 saturation 95 % on room air, BP was 146/77. GENERAL APPEARANCE: He is slightly obese, awake, and alert. HEART: Regular rate and rhythm with no murmurs, gallops, or rubs. LUNGS: Clear to auscultation bilaterally. ABDOMEN: Soft, nontender, and nondistended with positive bowel sounds. No masses and no organomegaly. EXTREMITIES: No cyanosis, clubbing, or edema. DISPOSITION: The patient is discharged home. He is to have a heart healthy low-sodium diet. His activity is as tolerated. MEDICATIONS: He will be on, 1. Carvedilol 12.5 mg one p.o. b.i.d. 2. Lisinopril 5 mg b.i.d. 3. Rosuvastatin 20 mg at bedtime. 4. Aldactone 25 mg q.a.m. He will continue with, 1. Acidophilus. 2. B12. 3. Glipizide. 4. Metformin. 5. Fluoxetine. 6. Aspirin. 7. Insulin. He will discontinue his previous dose of, 1. Doxazosin. 2. Atenolol. 3. Simvastatin. FOLLOWUP: The patient is to follow up with cardiac rehab at the [facility] and he will see Dr. Ledbetter on 01/14/2019. He can return to the hospital should he have any problems prior to that time. TIME SPENT: Total time in discharge activities including greater than 50% of this in [id number] time with the patient was 37 minutes. Job ID: [id number]
== END 2019-01-07 11:35 | disposition home or self-care (01) | DRG 287 ==
LOC: ERS 19:44 → 2NO 22:32
PROVIDERS: ADMIT Hospitalist; ATTEND Hospitalist
PROC: 4A023N7 Measurement of Cardiac Sampling and Pressure, Left Heart, Percutaneous Approach (ICD-10-PCS; principal; 2019-01-05)
PROC: B2111ZZ Fluoroscopy of Multiple Coronary Arteries using Low Osmolar Contrast (ICD-10-PCS; 2019-01-05)
PROC: B2151ZZ Fluoroscopy of Left Heart using Low Osmolar Contrast (ICD-10-PCS; 2019-01-05)
DX: I11.0 Hypertensive heart disease with heart failure (principal); L76.32 Postprocedural hematoma of skin and subcutaneous tissue following other procedure; I42.8 Other cardiomyopathies; I50.23 Acute on chronic systolic (congestive) heart failure; E66.9 Obesity, unspecified; Z68.32 Body mass index [BMI] 32.0-32.9, adult; E78.5 Hyperlipidemia, unspecified; F41.9 Anxiety disorder, unspecified; F32.9 Major depressive disorder, single episode, unspecified; F17.210 Nicotine dependence, cigarettes, uncomplicated; E11.65 Type 2 diabetes mellitus with hyperglycemia; I16.0 Hypertensive urgency; D64.9 Anemia, unspecified; E78.00 Pure hypercholesterolemia, unspecified; R91.8 Other nonspecific abnormal finding of lung field; Y84.0 Cardiac catheterization as the cause of abnormal reaction of the patient, or of later complication, without mention of misadventure at the time of the procedure; Z79.82 Long term (current) use of aspirin; Z79.4 Long term (current) use of insulin; Z79.899 Other long term (current) drug therapy
CPT/HCPCS: 36415; 36416; 71045; 71275; 74018; 74176; 76936; 76942; 80048; 80053; 80061; 81003; 81015; 83690; 83735; 83880; 84484; 85014; 85018; 85025; 85379; 93005; 93306; 93458; 93798; 94760; 96374; 99152; 99153; C1769; J0456; J0696; J1644; J1650; J1940; J2001; J2250; J2270; J3010; J3490; J7050; Q9967

== ENCOUNTER 2019-11-12 09:51 | Emergency (ER) | payer MEDICARE, OTHER ==
[2019-11-13 12:04] LABS: SARS-CoV-2 MS2 Positive; SARS-CoV-2 N Gene Negative; SARS-CoV-2 S Gene Negative; SARS-CoV-2 orf1ab Negative
== END 2019-11-12 10:19 | disposition home or self-care (01) ==
LOC: ERS 09:51
DX: Z20.828 Contact with and (suspected) exposure to other viral communicable diseases (principal); E11.9 Type 2 diabetes mellitus without complications; E78.5 Hyperlipidemia, unspecified; I10 Essential (primary) hypertension; F17.210 Nicotine dependence, cigarettes, uncomplicated; F32.9 Major depressive disorder, single episode, unspecified; F41.9 Anxiety disorder, unspecified; Z79.899 Other long term (current) drug therapy; Z79.4 Long term (current) use of insulin; Z79.82 Long term (current) use of aspirin
CPT/HCPCS: 99283; U0003; 87635

== ENCOUNTER 2021-02-07 08:47 | Outpatient (CLI) | payer OTHER | END 2021-02-07 08:48 | disposition home or self-care (01) | LOC: BICCT 08:47 | PROVIDERS: ATTEND Urology | DX: N50.812 Left testicular pain (principal); R10.32 Left lower quadrant pain; K57.30 Diverticulosis of large intestine without perforation or abscess without bleeding; N28.1 Cyst of kidney, acquired; K44.9 Diaphragmatic hernia without obstruction or gangrene; K42.9 Umbilical hernia without obstruction or gangrene; K40.20 Bilateral inguinal hernia, without obstruction or gangrene, not specified as recurrent; I70.1 Atherosclerosis of renal artery; Z87.442 Personal history of urinary calculi | CPT/HCPCS: 74178 ==

== ENCOUNTER 2021-10-17 10:44 | Inpatient (IN) | payer OTHER ==
[~2021-10-17 10:44] MED LIST changes: -Iopamidol 370 76% 100 ML VIAL ONE; +Iopamidol-370 76% 500 ML 1 ML ONE
[2021-10-17 11:45] LABS: #Basophils 0.1 thou/uL (0.0-0.2); #Eosinphils 0.2 thou/uL (0.0-0.7); #Lymphocytes 2.4 thou/uL (1.20-3.40); #Neutrophils 11.9 thou/uL (1.40-6.50); %Basophils 0.4 % (0.0-1.0); %Eosinophils 1.1 % (0.0-10.0); %Lymphocytes 15.3 % (21.0-51.0); %Monocytes 6.5 % (0.0-10.0); %Neutrophils 76.7 % (42.0-75.0); Hemoglobin 12.6 g/dL (14.0-18.0); Mean Corpuscular HGB CONC 33.8 g/dL (32.0-36.0); Mean Corpuscular Hemoglobin 30.5 pg (27.0-31.0); Mean Corpuscular Volume 90.1 fL (78.0-98.0); Mean Platelet Volume 7.7 fL (7.4-10.4); Platelet Count 289 thou/uL (130-400); Red Blood Cell (RBC) Count 4.13 mill/uL (4.70-6.10); White Blood Cell (WBC) Count 15.5 thou/uL (4.8-10.8)
[2021-10-17] MEDS ORDERED: Pantoprazole 40 MG VIAL ONE (12:05)
[2021-10-17 12:07] LABS: ALT (SGPT) 24 U/L (8-55); AST (SGOT) 12 U/L (5-34); Albumin 3.9 g/dL (3.4-4.8); Alkaline Phosphatase 77 U/L (40-110); Anion Gap 14 mmol/L (10-20); BUN (Urea Nitrogen) 16 mg/dL (8.4-25.7); Bilirubin, Total 0.4 mg/dL (0.2-1.2); Calc. Creatinine Clearance 0 mL/min (70-130); Calcium 9.3 mg/dL (7.8-10.44); Carbon Dioxide 21 mmol/L (23-31); Chloride 104 mmol/L (98-107); Globulin 3.5 g/dL (2.4-3.5); Glucose 223 mg/dL (80-115); Lipase 335 U/L (8-78); Potassium 4.5 mmol/L (3.5-5.1); Protein, Total 7.4 g/dL (5.8-8.1); Sodium 134 mmol/L (136-145)
[2021-10-17] MEDS ORDERED: Morphine 4 MG/ML VIAL ONE (13:29)
[2021-10-17] MEDS ORDERED: metroNIDAZOLE 500 MG/100 ML BAG ONE (13:29)
[2021-10-17] MEDS ORDERED: HYDROcodone/Acetaminophen 10/325 mg Tablet PO PRN (14:06)
[2021-10-17] MEDS ORDERED: Ondansetron ODT 4 MG TAB PO PRN (14:06)
[2021-10-17] MEDS ORDERED: Ondansetron PF 4 MG/2 ML Vial IVP PRN (14:06)
[2021-10-17] MEDS ORDERED: Calcium Carbonate 500 MG ChewTAB PO PRN (14:06)
[2021-10-17] MEDS ORDERED: Bisacodyl 10 MG SUPP PR PRN (14:06)
[2021-10-17] MEDS ORDERED: Acetaminophen 325 MG TAB PO PRN (14:06)
[2021-10-17] MEDS ORDERED: Dextrose 5% in Water 1,000 ML IV PRN (14:24)
[2021-10-17] MEDS ORDERED: HumaLOG 300 UNITS/3 ML VIAL SC PRN (14:24)
[2021-10-17] MEDS ORDERED: Dextrose 50% Abboject 50 ML SYRINGE SLOW IVP PRN (14:24)
[2021-10-17 15:05] VITALS: BMI 28.8
[2021-10-17] MEDS: Sodium Chloride 0.9% 1,000 ML IV SCH (15:26)
[2021-10-17] MEDS: Carvedilol 25 MG TAB PO SCH (15:42)
[2021-10-17] MEDS: Morphine 2 MG/ML VIAL SLOW IVP PRN ×2 (17:22→23:22)
[2021-10-17] MEDS ORDERED: metroNIDAZOLE 500 MG in Premix Bag 1 BAG IVPB SCH (18:00)
[2021-10-17] MEDS: metroNIDAZOLE 500 MG in Premix Bag 1 BAG IVPB SCH (20:21)
[2021-10-17] MEDS: Rosuvastatin 20 MG TAB PO SCH (20:22)
[2021-10-17] MEDS: LACTINEX 1 TAB PO SCH (20:22)
[2021-10-17] MEDS: Tamsulosin HCl 0.4 MG CAP PO SCH (20:22)
[2021-10-18] MEDS: metroNIDAZOLE 500 MG in Premix Bag 1 BAG IVPB SCH ×4 (02:57→20:33)
[2021-10-18] MEDS: Sodium Chloride 0.9% 1,000 ML IV SCH (02:57)
[2021-10-18] MEDS: Morphine 2 MG/ML VIAL SLOW IVP PRN ×3 (03:04→20:49)
[2021-10-18 07:32] LABS: #Eosinphils 0.2 thou/uL (0.0-0.7); #Lymphocytes 2.8 thou/uL (1.20-3.40); #Monocytes 0.8 thou/uL (0.11-0.59); #Neutrophils 6.6 thou/uL (1.40-6.50); %Basophils 0.4 % (0.0-1.0); %Eosinophils 1.7 % (0.0-10.0); %Monocytes 8.1 % (0.0-10.0); %Neutrophils 62.9 % (42.0-75.0); Hemoglobin 11.2 g/dL (14.0-18.0); Mean Corpuscular HGB CONC 33.3 g/dL (32.0-36.0); Mean Corpuscular Hemoglobin 30.3 pg (27.0-31.0); Mean Platelet Volume 7.9 fL (7.4-10.4); Platelet Count 233 thou/uL (130-400); White Blood Cell (WBC) Count 10.5 thou/uL (4.8-10.8)
[2021-10-18 07:54] LABS: Anion Gap 12 mmol/L (10-20); BUN (Urea Nitrogen) 10 mg/dL (8.4-25.7); Calc. Creatinine Clearance 90 mL/min (70-130); Calcium 8.6 mg/dL (7.8-10.44); Carbon Dioxide 22 mmol/L (23-31); Chloride 108 mmol/L (98-107); Glucose 114 mg/dL (80-115); Sodium 138 mmol/L (136-145)
[2021-10-18] MEDS: Carvedilol 25 MG TAB PO SCH ×2 (09:37→16:54)
[2021-10-18] MEDS: metFORMIN XR 500 MG TAB PO SCH (09:37)
[2021-10-18] MEDS: Cyanocobalamin (Vitamin B-12) 1,000 MCG TAB PO SCH (09:38)
[2021-10-18] MEDS: Cholecalciferol (Vitamin D3) 400 UNITS TAB PO SCH (09:38)
[2021-10-18] MEDS: Spironolactone 25 MG TAB PO SCH (09:38)
[2021-10-18] MEDS: LACTINEX 1 TAB PO SCH ×2 (09:54→20:32)
[2021-10-18] MEDS ORDERED: Furosemide 20 MG TAB PO SCH (13:30)
[2021-10-18] MEDS: Rosuvastatin 20 MG TAB PO SCH (20:31)
[2021-10-18] MEDS: Tamsulosin HCl 0.4 MG CAP PO SCH (20:32)
[2021-10-19] MEDS: metroNIDAZOLE 500 MG in Premix Bag 1 BAG IVPB SCH ×4 (01:51→19:42)
[2021-10-19] MEDS: HYDROcodone/Acetaminophen 5/325 mg Tablet PO PRN ×5 (01:55→20:46)
[2021-10-19] MEDS: metFORMIN XR 500 MG TAB PO SCH (08:25)
[2021-10-19] MEDS: Furosemide 20 MG TAB PO SCH (08:25)
[2021-10-19] MEDS: Cyanocobalamin (Vitamin B-12) 1,000 MCG TAB PO SCH (08:25)
[2021-10-19] MEDS: Spironolactone 25 MG TAB PO SCH (08:25)
[2021-10-19] MEDS: Carvedilol 25 MG TAB PO SCH ×2 (08:25→17:30)
[2021-10-19] MEDS: Cholecalciferol (Vitamin D3) 400 UNITS TAB PO SCH (08:25)
[2021-10-19] MEDS: LACTINEX 1 TAB PO SCH ×2 (08:25→20:39)
[2021-10-19 09:06] LABS: #Basophils 0.1 thou/uL (0.0-0.2); #Eosinphils 0.2 thou/uL (0.0-0.7); #Lymphocytes 2.5 thou/uL (1.20-3.40); #Monocytes 0.9 thou/uL (0.11-0.59); #Neutrophils 7.7 thou/uL (1.40-6.50); %Basophils 0.8 % (0.0-1.0); %Eosinophils 1.4 % (0.0-10.0); %Neutrophils 67.9 % (42.0-75.0); Mean Corpuscular HGB CONC 33.3 g/dL (32.0-36.0); Mean Corpuscular Hemoglobin 30.1 pg (27.0-31.0); Mean Corpuscular Volume 90.4 fL (78.0-98.0); Mean Platelet Volume 7.4 fL (7.4-10.4); Platelet Count 267 thou/uL (130-400); Red Blood Cell (RBC) Count 3.97 mill/uL (4.70-6.10); White Blood Cell (WBC) Count 11.4 thou/uL (4.8-10.8)
[2021-10-19 09:25] LABS: Anion Gap 14 mmol/L (10-20); BUN (Urea Nitrogen) 9 mg/dL (8.4-25.7); Calc. Creatinine Clearance 78 mL/min (70-130); Calcium 8.9 mg/dL (7.8-10.44); Carbon Dioxide 23 mmol/L (23-31); Chloride 104 mmol/L (98-107); Glucose 200 mg/dL (80-115); Potassium 3.9 mmol/L (3.5-5.1); Sodium 137 mmol/L (136-145)
[2021-10-19] MEDS ORDERED: Polyethylene Glycol 3350 17 GM Packet PO SCH (15:15)
[2021-10-19] MEDS: Tamsulosin HCl 0.4 MG CAP PO SCH (19:44)
[2021-10-19] MEDS: Rosuvastatin 20 MG TAB PO SCH (19:44)
[2021-10-19] MEDS: Betamethasone 0.1% Cream 15 GM TUBE TOP SCH (20:39)
[2021-10-20] MEDS: metroNIDAZOLE 500 MG in Premix Bag 1 BAG IVPB SCH ×4 (01:51→19:25)
[2021-10-20] MEDS: HYDROcodone/Acetaminophen 5/325 mg Tablet PO PRN ×5 (02:19→20:55)
[2021-10-20 07:45] LABS: #Eosinphils 0.2 thou/uL (0.0-0.7); #Monocytes 0.9 thou/uL (0.11-0.59); #Neutrophils 6.7 thou/uL (1.40-6.50); %Basophils 0.3 % (0.0-1.0); %Eosinophils 2.3 % (0.0-10.0); %Lymphocytes 27.6 % (21.0-51.0); %Monocytes 8.6 % (0.0-10.0); %Neutrophils 61.2 % (42.0-75.0); Hemoglobin 11.3 g/dL (14.0-18.0); Mean Corpuscular HGB CONC 33.4 g/dL (32.0-36.0); Mean Corpuscular Hemoglobin 30.3 pg (27.0-31.0); Mean Corpuscular Volume 90.6 fL (78.0-98.0); Mean Platelet Volume 7.5 fL (7.4-10.4); Platelet Count 258 thou/uL (130-400); Red Blood Cell (RBC) Count 3.72 mill/uL (4.70-6.10); White Blood Cell (WBC) Count 10.9 thou/uL (4.8-10.8)
[2021-10-20] MEDS: Furosemide 20 MG TAB PO SCH (08:04)
[2021-10-20] MEDS: Carvedilol 25 MG TAB PO SCH ×2 (08:04→17:28)
[2021-10-20] MEDS: Polyethylene Glycol 3350 17 GM Packet PO SCH (08:04)
[2021-10-20] MEDS: Aspirin 81 mg Enteric Coated Tablet PO SCH (08:04)
[2021-10-20] MEDS: Cholecalciferol (Vitamin D3) 400 UNITS TAB PO SCH (08:04)
[2021-10-20] MEDS: Spironolactone 25 MG TAB PO SCH (08:04)
[2021-10-20] MEDS: Cyanocobalamin (Vitamin B-12) 1,000 MCG TAB PO SCH (08:04)
[2021-10-20] MEDS: metFORMIN XR 500 MG TAB PO SCH (08:04)
[2021-10-20 08:09] LABS: Anion Gap 14 mmol/L (10-20); BUN (Urea Nitrogen) 9 mg/dL (8.4-25.7); Calc. Creatinine Clearance 87 mL/min (70-130); Calcium 9.3 mg/dL (7.8-10.44); Carbon Dioxide 23 mmol/L (23-31); Chloride 105 mmol/L (98-107); Glucose 84 mg/dL (80-115); Potassium 3.5 mmol/L (3.5-5.1); Sodium 138 mmol/L (136-145)
[2021-10-20] MEDS: Betamethasone 0.1% Cream 15 GM TUBE TOP SCH ×2 (08:10→20:54)
[2021-10-20] MEDS: LACTINEX 1 TAB PO SCH ×2 (08:10→20:56)
[2021-10-20 10:30] LABS: Bacteria/HPF None Seen HPF (None Seen); Bilirubin Negative (Negative); Blood, Urine Trace (Negative); Clarity Clear (Clear); Glucose, Urine (Dipstick) Normal (Negative); Ketone, Urine 40 mg/dL (Negative); Leukocyte 25 Leu/uL (Negative); Nitrite Negative (Negative); Protein, Urine (Dipstick) Negative (Neg-Trace); RBC/HPF 0-3 HPF (0-3); Specific Gravity, Urine 1.015 (1.002-1.036); Squamous Epithelial 0-3 HPF (0-3); Urobilinogen Normal mg/dL (Less than 2); WBC/HPF 0-3 HPF (0-3); pH, Urine 5.5 (5.0-9.0)
[2021-10-20 10:30] LABS: ALT (SGPT) 24 U/L (8-55); AST (SGOT) 23 U/L (5-34); Albumin 3.6 g/dL (3.4-4.8); Alkaline Phosphatase 67 U/L (40-110); Bilirubin, Direct 0.2 mg/dL (0.1-0.3); Bilirubin, Total 0.4 mg/dL (0.2-1.2); Protein, Total 6.6 g/dL (5.8-8.1)
[2021-10-20] MEDS: Tamsulosin HCl 0.4 MG CAP PO SCH (20:41)
[2021-10-20] MEDS: Rosuvastatin 20 MG TAB PO SCH (20:42)
[2021-10-21] MEDS: HYDROcodone/Acetaminophen 5/325 mg Tablet PO PRN ×2 (01:51→08:57)
[2021-10-21] MEDS: metroNIDAZOLE 500 MG in Premix Bag 1 BAG IVPB SCH ×3 (01:52→13:50)
[2021-10-21 06:17] LABS: #Eosinphils 0.3 thou/uL (0.0-0.7); #Lymphocytes 2.7 thou/uL (1.20-3.40); #Neutrophils 6.3 thou/uL (1.40-6.50); %Basophils 0.1 % (0.0-1.0); %Eosinophils 2.8 % (0.0-10.0); %Lymphocytes 26.6 % (21.0-51.0); %Monocytes 9.2 % (0.0-10.0); %Neutrophils 61.2 % (42.0-75.0); Hemoglobin 11.1 g/dL (14.0-18.0); Mean Corpuscular HGB CONC 32.7 g/dL (32.0-36.0); Mean Corpuscular Hemoglobin 29.4 pg (27.0-31.0); Mean Corpuscular Volume 89.9 fL (78.0-98.0); Mean Platelet Volume 7.6 fL (7.4-10.4); Platelet Count 260 thou/uL (130-400); RBC Distribution Width 11.8 % (11.5-14.5); Red Blood Cell (RBC) Count 3.76 mill/uL (4.70-6.10); White Blood Cell (WBC) Count 10.3 thou/uL (4.8-10.8)
[2021-10-21 06:37] LABS: Anion Gap 13 mmol/L (10-20); BUN (Urea Nitrogen) 11 mg/dL (8.4-25.7); Calc. Creatinine Clearance 76 mL/min (70-130); Calcium 9.2 mg/dL (7.8-10.44); Carbon Dioxide 26 mmol/L (23-31); Chloride 105 mmol/L (98-107); Glucose 125 mg/dL (80-115); Potassium 3.5 mmol/L (3.5-5.1); Sodium 140 mmol/L (136-145)
[2021-10-21 08:50] VITALS: BP 111/70; TEMP 98.4
[2021-10-21] MEDS: Carvedilol 25 MG TAB PO SCH (08:56)
[2021-10-21] MEDS: Furosemide 20 MG TAB PO SCH (08:56)
[2021-10-21] MEDS: Cholecalciferol (Vitamin D3) 400 UNITS TAB PO SCH (08:56)
[2021-10-21] MEDS: Cyanocobalamin (Vitamin B-12) 1,000 MCG TAB PO SCH (08:56)
[2021-10-21] MEDS: metFORMIN XR 500 MG TAB PO SCH (08:56)
[2021-10-21] MEDS: Spironolactone 25 MG TAB PO SCH (08:56)
[2021-10-21] MEDS: Aspirin 81 mg Enteric Coated Tablet PO SCH (08:56)
[2021-10-21] MEDS: LACTINEX 1 TAB PO SCH (08:57)
[2021-10-21] MEDS: Polyethylene Glycol 3350 17 GM Packet PO SCH (08:57)
[2021-10-21] MEDS: Betamethasone 0.1% Cream 15 GM TUBE TOP SCH (08:59)
== END 2021-10-21 16:00 | disposition home or self-care (01) | DRG 392 ==
LOC: ERS 10:44 → T4-B 13:38
PROVIDERS: ADMIT Family Medicine; ATTEND Family Medicine
DX: K57.32 Diverticulitis of large intestine without perforation or abscess without bleeding (principal); I50.22 Chronic systolic (congestive) heart failure; I42.8 Other cardiomyopathies; Z20.822 Contact with and (suspected) exposure to COVID-19; E78.5 Hyperlipidemia, unspecified; N40.0 Benign prostatic hyperplasia without lower urinary tract symptoms; I11.0 Hypertensive heart disease with heart failure; F41.9 Anxiety disorder, unspecified; F32.9 Major depressive disorder, single episode, unspecified; F17.210 Nicotine dependence, cigarettes, uncomplicated; K21.9 Gastro-esophageal reflux disease without esophagitis; D64.9 Anemia, unspecified; E11.65 Type 2 diabetes mellitus with hyperglycemia; Z79.82 Long term (current) use of aspirin; Z79.84 Long term (current) use of oral hypoglycemic drugs; Z79.899 Other long term (current) drug therapy
CPT/HCPCS: 36415; 36416; 74177; 80048; 80053; 80076; 81001; 82274; 83690; 85025; 96365; 96375; C9113; J1956; J2270; J7050; Q9967; U0003; U0005

== ENCOUNTER 2021-12-31 08:16 | Outpatient (CLI) | payer OTHER ==
[2021-12-31] MEDS ORDERED: Iopamidol-370 76% 500 ML 1 ML ONE (08:55)
== END 2021-12-31 08:17 | disposition home or self-care (01) ==
LOC: BICCT 08:16
PROVIDERS: ATTEND Internal Medicine
DX: R10.30 Lower abdominal pain, unspecified (principal); D50.9 Iron deficiency anemia, unspecified; K57.30 Diverticulosis of large intestine without perforation or abscess without bleeding; Z90.49 Acquired absence of other specified parts of digestive tract; Z87.19 Personal history of other diseases of the digestive system
CPT/HCPCS: 74177; 82565; Q9967